=== PATIENT | female | born 1975 | race African-American/Black ===

== ENCOUNTER 2023-01-05 09:28 | Outpatient (CLI) | payer OTHER | END 2023-01-05 09:29 | disposition home or self-care (01) | LOC: BICMAMMO 09:28 | PROVIDERS: ATTEND Family Medicine | DX: Z12.31 Encounter for screening mammogram for malignant neoplasm of breast (principal); Z80.3 Family history of malignant neoplasm of breast | CPT/HCPCS: 77063; 77067 ==